=== PATIENT | female | born 1995 | race Caucasian/White ===

== ENCOUNTER 2019-04-03 16:35 | Outpatient (CLI) | payer OTHER ==
[~2019-04-03] VITALS: Ht 165.1 cm; Wt 91.2 kg
[~2019-04-03 16:35] MED LIST: PNV11TAB PO
[2019-04-03 17:22] VITALS: Ht 165.1 cm; Wt 91.2 kg
== END 2019-04-03 18:53 | disposition home or self-care (01) ==
LOC: OBT 16:35 → L-D 16:36 → OBT 18:53
PROVIDERS: ATTEND Obstetrics & Gynecology
DX: O36.8130 Decreased fetal movements, third trimester, not applicable or unspecified (principal); Z3A.38 38 weeks gestation of pregnancy
CPT/HCPCS: 76815; 76818; Z7500; G0463